=== PATIENT | female | born 1975 | race Caucasian/White ===

== ENCOUNTER → 2021-07-31 | Outpatient (REF) | payer OTHER | LOC: M LAB REF 17:09 | PROVIDERS: ATTEND Nurse Practitioner Family | DX: L43.9 Lichen planus, unspecified (principal) ==

== ENCOUNTER → 2021-09-12 | Outpatient (REF) | payer OTHER | LOC: M SFHCDERM 13:47 | PROVIDERS: ATTEND Nurse Practitioner Family | DX: L82.1 Other seborrheic keratosis (principal) ==

== ENCOUNTER → 2022-06-21 | Outpatient (REF) | payer OTHER | LOC: M SFHCDERM 17:31 | PROVIDERS: ATTEND Physician Assistant | DX: D48.9 Neoplasm of uncertain behavior, unspecified (principal); L43.9 Lichen planus, unspecified ==

== ENCOUNTER → 2024-09-01 | Outpatient (REF) | payer OTHER | LOC: M SFHCDERM 18:30 | PROVIDERS: ATTEND Physician Assistant | DX: D23.71 Other benign neoplasm of skin of right lower limb, including hip (principal) ==